=== PATIENT | female | born 1945 | race Caucasian/White ===

== ENCOUNTER 2017-10-15 09:00 | Outpatient (CLI) | payer MEDICARE, MEDICAID ==
--- NOTE | 2017-10-15 13:42 | Diagnostic Imaging Report ---
Pelvic ultrasound HISTORY: Pain The exam is limited to transabdominal sonographic technique. Evaluation limited due to incomplete urinary bladder distention. There is incomplete visualization of the uterus. This appears to be normal in overall size(approximately 5.2 x 3.2 x 4.2 cm). No obvious focal myometrial lesions are seen. The endometrium cannot be clearly visualized. No other obvious abnormal masses in the pelvis. No abnormal fluid collections. IMPRESSION: 1. Limited/suboptimal exam due to the factors noted above. No obvious abnormal masses or fluid collections
== END 2017-10-15 11:30 | disposition home or self-care (01) ==
LOC: RAD 09:00
PROVIDERS: ATTEND Legal Medicine
DX: R10.2 Pelvic and perineal pain (principal); G80.8 Other cerebral palsy; G40.909 Epilepsy, unspecified, not intractable, without status epilepticus
CPT/HCPCS: 76856-TC

== ENCOUNTER 2017-12-10 08:54 | Outpatient (CLI) | payer MEDICARE, MEDICAID ==
--- NOTE | 2017-12-10 10:27 | Diagnostic Imaging Report ---
Bilateral breast ultrasound HISTORY: Calcifications The exam is very limited due to patient dilatation, lack of cooperation, difficulty in positioning and patient contraction. No obvious focal lesions seen within the right breast. An approximate 3 mm sonolucent lesion is seen in the periareolar region of the left breast consistent with a small cyst. No other significant abnormal masses. IMPRESSION: 1. Very Limited/suboptimal exam due to difficulty in patient cooperation, mobility, and positioning 2. Findings consistent with a 3 mm left periareolar cyst This examination should not preclude further evaluation of a clinically palpable suspicious mass.
== END 2017-12-10 09:40 ==
LOC: RAD 08:54
PROVIDERS: ATTEND Legal Medicine
DX: R92.1 Mammographic calcification found on diagnostic imaging of breast (principal)
CPT/HCPCS: 76641